=== PATIENT | male | born 1990 | race African-American/Black ===

== ENCOUNTER 2024-10-08 15:40 | Emergency (ER) | payer MEDICAID ==
[~2024-10-08] VITALS: Ht 170.2 cm; Wt 84.2 kg
[2024-10-08 15:42] VITALS: O2SAT 98
[2024-10-08 15:45] VITALS: BP 111/68; PULSE 97; RESP 18; TEMP 98.1; O2SAT 99
== END 2024-10-08 18:08 | disposition home or self-care (01) ==
LOC: ER 15:40
DX: S01.01XD Laceration without foreign body of scalp, subsequent encounter (principal); X58.XXXD Exposure to other specified factors, subsequent encounter
CPT/HCPCS: 99281

== ENCOUNTER 2024-10-29 12:50 | Emergency (ER) | payer MEDICAID ==
[~2024-10-29] VITALS: Ht 175.3 cm; Wt 82.0 kg
[2024-10-29 13:04] VITALS: BP 138/76; TEMP 98.7; O2SAT 99
[2024-10-29 13:05] VITALS: PULSE 97; RESP 14; O2SAT 100
== END 2024-10-29 21:07 | disposition home or self-care (01) ==
LOC: ER 13:03
DX: S00.86XA Insect bite (nonvenomous) of other part of head, initial encounter (principal); W57.XXXA Bitten or stung by nonvenomous insect and other nonvenomous arthropods, initial encounter; Y93.89 Activity, other specified; Y92.89 Other specified places as the place of occurrence of the external cause; Y99.8 Other external cause status
CPT/HCPCS: 99281

== ENCOUNTER 2025-02-05 09:22 | Emergency (ER) | payer MEDICAID ==
[~2025-02-05] VITALS: Ht 170.2 cm; Wt 75.0 kg
[2025-02-05 09:23] VITALS: O2SAT 97
[2025-02-05 09:34] VITALS: TEMP 36.9; O2SAT 100
[2025-02-05] MEDS ORDERED: AMOX1TAB16 MT (09:37)
[2025-02-05] MEDS ORDERED: IBUP-2029 MT (09:37)
[2025-02-05 10:07] VITALS: BP 106/64; PULSE 97; RESP 16
[2025-02-05] MEDS: IBUPROFEN 600MG TABLET PO ONE (10:07)
[2025-02-05] MEDS: AMOXICILLIN/POTASSIUM CLAVULANATE 875/125MG TAB PO ONE (10:07)
== END 2025-02-05 10:15 | disposition home or self-care (01) ==
LOC: ER 09:22
DX: J03.00 Acute streptococcal tonsillitis, unspecified (principal); Z79.899 Other long term (current) drug therapy
CPT/HCPCS: 99283